=== PATIENT | male | born 1980 | race Caucasian/White ===

== ENCOUNTER 2020-06-30 20:41 | Emergency (ER) | payer BC ==
[~2020-06-30] VITALS: Ht 177.8 cm; Wt 140.9 kg
[2020-06-30 21:14] LABS: INR 1.1 (0.8-3.0); PROTHROMBIN TIME 12.4 SECONDS (9.7-12.8)
[2020-06-30 21:15] LABS: BASO # 0.1 (0.0-0.2); BASO % 0.7 % (0.0-2.0); EOS # 0.4 (0.0-0.7); EOS % 4.2 % (0-4.0); GRAN # 5.3 (1.4-6.5); GRAN % 52.5 % (42.2-75.2); HEMATOCRIT 46.4 % (42.0-52.0); HEMOGLOBIN 15.6 g/dl (13.5-18.0); LYMPH # 3.3 (1.2-3.4); LYMPH % 32.6 % (20.0-51.0); MEAN CELL VOLUME 83 fl (80.0-100.0); MEAN CORPUSCULAR HEMOGLOBIN 28 pg (27.0-31.0); MEAN CORPUSCULAR HGB CONC 34 g/dl (33.0-37.0); MEAN PLATELET VOLUME 9.1 fl (7.4-10.4); MONO % 9.7 % (1.7-9.3); PLATELET COUNT 214 K/mm3 (130-400); RED BLOOD COUNT 5.59 M/mm3 (4.20-5.60); REDCELL DISTRIBUTION WIDTH-CV 13.2 % (11.5-14.5)
[2020-06-30 21:16] LABS: PARTIAL THROMBOPLASTIN TIME 37.3 SECONDS (26.0-37.0)
[2020-06-30 21:18] LABS: ALBUMIN 4.3 gm/dL (3.5-5.0); BILIRUBIN,TOTAL 0.4 mg/dL (0.0-1.0); CALCIUM 9.5 mg/dL (8.4-10.2); CREATININE, serum 1.06 (0.66-1.25); POTASSIUM 3.9 mmol/L (3.4-5.0); TOTAL PROTEIN 7.6 gm/dL (6.4-8.2)
[2020-06-30] MEDS ORDERED: PREDNISONE20 MG PO (22:24)
[2020-06-30] MEDS ORDERED: VALTREX1 GM PO (22:24)
[2020-06-30] MEDS ORDERED: VISINE TEARS 0.30 ML OP (22:24)
[2020-06-30 22:37] VITALS: BP 135/83; PULSE 74; TEMP 98.1
== END 2020-06-30 22:40 | disposition home or self-care (01) ==
LOC: COL.ER 20:41
PROVIDERS: Emergency Medicine
DX: G51.0 Bell's palsy (principal); Z87.891 Personal history of nicotine dependence
CPT/HCPCS: J1100